=== PATIENT | female | born 2000 | race Two or more races ===

== ENCOUNTER 2022-08-20 07:54 | Emergency (ER) | payer MEDICAID ==
[~2022-08-20] VITALS: Ht 154.9 cm; Wt 66.5 kg
[2022-08-20 08:41] VITALS: BP 116/61
[2022-08-20] MEDS ORDERED: ACETAMINOPHEN 500 MG TAB PO ONE (09:00)
[2022-08-20] MEDS ORDERED: ACET1CAP14 PO (09:41)
== END 2022-08-20 10:07 | disposition home or self-care (01) ==
LOC: ER 07:54
DX: J40 Bronchitis, not specified as acute or chronic (principal); J06.9 Acute upper respiratory infection, unspecified; Z20.822 Contact with and (suspected) exposure to COVID-19
CPT/HCPCS: 36415; 71045; 87426; 87804

== ENCOUNTER 2022-09-08 12:57 | Emergency (ER) | payer MEDICAID ==
[~2022-09-08] VITALS: Ht 154.9 cm; Wt 64.6 kg
[~2022-09-08 12:57] MED LIST: ACET1CAP14 PO
[2022-09-08 13:40] VITALS: BP 121/75
[2022-09-08] MEDS ORDERED: SUMAtriptan SUCCINATE 6 MG/0.5 ML VL SC ONE (14:15)
[2022-09-08] MEDS ORDERED: ONDANSETRON ODT 4 MG TAB PO ONE (14:15)
[2022-09-08] MEDS ORDERED: ONDA-144 PO (14:26)
[2022-09-08] MEDS ORDERED: SUMA50TA2 PO (14:26)
== END 2022-09-08 14:30 | disposition home or self-care (01) ==
LOC: ER 12:58
DX: G43.909 Migraine, unspecified, not intractable, without status migrainosus (principal); R11.2 Nausea with vomiting, unspecified; J45.909 Unspecified asthma, uncomplicated
CPT/HCPCS: 70450; 93005; 96372; 99285; J3030; Q0162